=== PATIENT | male | born 1980 | race Caucasian/White ===

== ENCOUNTER 2018-11-10 10:30 | Emergency (ER) | payer OTHER, SELFPAY ==
--- NOTE | 2018-11-10 12:13 | ER ---
Nurse's Notes [facility] Name: Leonardo Ochoa Age: 38 yrs Sex: Male : 1980 Arrival Date: 11/10/2018 Time: 10:35 Bed 13 Private MD: Unknown, Unknown Diagnosis: Acute upper respiratory infection, unspecified Presentation: 11/10 10:47 Presenting complaint: Patient states: "Last night I started having a sharp pain in my aj1 neck and my chest when I breathe" Patient also reports shortness of breath and states he has been "coughing up green stuff for a couple months". Transition of care: patient was not received from another setting of care. Onset of symptoms was November 10, 2018. Risk Assessment: Do you want to hurt yourself or someone else? Patient reports no desire to harm self or others. Initial Sepsis Screen: Does the patient meet any 2 criteria? HR > 90 bpm. No. Patient's initial sepsis screen is negative. Does the patient have a suspected source of infection? Yes: Productive cough/pneumonia. Care prior to arrival: None. 10:47 Method Of Arrival: Ambulatory [facility] 10:47 Acuity: LAURA 3 aj1 Triage Assessment: 10:48 General: Appears in no apparent distress. comfortable, Behavior is calm, cooperative, aj1 appropriate for age. Pain: Complains of pain in chest Pain currently is 7 out of 10 on a pain scale. Neuro: Level of Consciousness is awake, alert, obeys commands, Oriented to person, place, time, situation. Cardiovascular: Patient's skin is warm and dry. Respiratory: Airway is patent Respiratory effort is even, unlabored, Respiratory pattern is regular, symmetrical. Historical: - Allergies: 10:48 No Known Allergies; aj1 - Home Meds: 10:48 None [Active]; aj1 - PMHx: 10:48 None; aj1 - PSHx: 10:48 None; aj1 - Immunization history:: Flu vaccine is not up to date. - Social history:: Smoking status: Patient uses tobacco products, smokes one pack cigarettes per day. - Ebola Screening: : Patient denies travel to an Ebola-affected area in the 21 days before illness onset. Screenin:08 Abuse screen: Denies threats or abuse. Denies injuries from another. Nutritional sg screening: No deficits noted. Tuberculosis screening: No symptoms or risk factors identified. Never had TB. Fall Risk None identified. Assessment: 11:00 General: Appears in no apparent distress. well groomed, well developed, well nourished, sg Behavior is calm, cooperative, appropriate for age. Pain: Complains of pain in body aches and anterior chest wall with cough. Neuro: Level of Consciousness is awake, alert, obeys commands, Oriented to person, place, time, Wire Drawing Setter are equal bilaterally Moves all extremities. Full function Gait is steady, Speech is normal. Cardiovascular: Capillary refill is brisk in bilateral fingers Patient's skin is warm and dry. Chest pain is denied. Respiratory: Airway is patent Respiratory effort is even, unlabored, Respiratory pattern is regular, symmetrical. GI: No signs and/or symptoms were reported involving the gastrointestinal system. : No signs and/or symptoms were reported regarding the genitourinary system. EENT: No signs and/or symptoms were reported regarding the EENT system. Derm: Skin is pink, warm \\T\\ dry. Musculoskeletal: Circulation, motion, and sensation intact. Range of motion: intact in all extremities. Vital Signs: 10:48 BP 127 / 70; Pulse 105; Resp 20; Temp 99.8; Pulse Ox 99% on R/A; Weight 90.72 kg (R); aj1 Height 5 ft. 9 in. (175.26 cm) (R); Pain 7/10; 10:48 Body Mass Index 29.53 (90.72 kg, 175.26 cm) aj1 ED Course: 10:35 Patient arrived in ED. ag5 10:36 Unknown, Unknown is Private Physician. ag5 10:48 Triage completed. aj1 10:48 Arm band placed on Patient placed in an exam room. aj1 10:51 Mic Kim, TEDDY is Primary Nurse. 10:52 Love eFldman FNP is PHCP. nd 10:52 Eusebio Ortiz MD is Attending Physician. nd 11:00 Patient has correct armband on for positive identification. Bed in low position. Call sg light in reach. Pulse ox on. NIBP on. 11:08 No provider procedures requiring assistance completed. Flu and/or RSV swab sent to lab. Patient did not have IV access during this emergency room visit. Patient maintains SpO2 saturation greater than 95% on room air. 11:15 Chest Pa And Lat (2 Views) XRAY In Process Unspecified. EDMS Administered Medications: No medications were administered Outcome: 12:12 Discharge ordered by . dion 12:20 Discharged to home ambulatory, with family. guy 12:20 Condition: good 12:20 Discharge instructions given to patient, family, Instructed on discharge instructions, follow up and referral plans. no drinking with medication, no driving heavy equipment, medication usage, safety practices, Demonstrated understanding of instructions, follow-up care, medications. 12:24 Patient left the ED. Signatures: Dispatcher [employer] EDBhumika Hewitt RN RN aj1 Mic Kim RN RN sg Love Feldman, FILM REPRODUCER FILM REPRODUCER Zahida Conway RN RN Hetal Taylor ag5
--- NOTE | 2018-11-10 12:14 | EDPHYS ---
Physician Documentation [facility] Name: Leonardo Ochoa Age: 38 yrs Sex: Male : 1980 Arrival Date: 11/10/2018 Time: 10:35 Bed 13 Private MD: Unknown, Unknown ED Physician Eusebio Ortiz HPI: 11/10 10:58 This 38 yrs old Male presents to ER via Ambulatory with complaints of Chest nh Pain, Sore Throat, Breathing Difficulty. Historical: - Allergies: 10:48 No Known Allergies; aj1 - Home Meds: 10:48 None [Active]; aj1 - PMHx: 10:48 None; aj1 - PSHx: 10:48 None; aj1 - Immunization history:: Flu vaccine is not up to date. - Social history:: Smoking status: Patient uses tobacco products, smokes one pack cigarettes per day. - Ebola Screening: : Patient denies travel to an Ebola-affected area in the 21 days before illness onset. ROS: 12:08 Eyes: Negative for injury, pain, redness, and discharge, ENT: Negative for injury, nh pain, and discharge, Neck: Negative for injury, pain, and swelling, Cardiovascular: Negative for chest pain, palpitations, and edema, Abdomen/GI: Negative for abdominal pain, nausea, vomiting, diarrhea, and constipation, Back: Negative for injury and pain, : Negative for injury, bleeding, discharge, and swelling, MS/Extremity: Negative for injury and deformity, Skin: Negative for injury, rash, and discoloration, Neuro: Negative for headache, weakness, numbness, tingling, and seizure, Psych: Negative for depression, anxiety, suicide ideation, homicidal ideation, and hallucinations. 12:08 Constitutional: Positive for body aches, fatigue, fever. 12:08 Respiratory: Positive for cough, with no reported sputum, pleurisy, of the right breast. Exam: 12:08 Constitutional: This is a well developed, well nourished patient who is awake, alert, nh and in no acute distress. Head/Face: Normocephalic, atraumatic. Eyes: Pupils equal round and reactive to light, extra-ocular motions intact. Lids and lashes normal. Conjunctiva and sclera are non-icteric and not injected. Cornea within normal limits. Periorbital areas with no swelling, redness, or edema. ENT: Nares patent. No nasal discharge, no septal abnormalities noted. Tympanic membranes are normal and external auditory canals are clear. Oropharynx with no redness, swelling, or masses, exudates, or evidence of obstruction, uvula midline. Mucous membranes moist. Neck: Trachea midline, no thyromegaly or masses palpated, and no cervical lymphadenopathy. Supple, full range of motion without nuchal rigidity, or vertebral point tenderness. No Meningismus. Chest/axilla: Normal chest wall appearance and motion. Nontender with no deformity. No lesions are appreciated. Cardiovascular: Regular rate and rhythm with a normal S1 and S2. No gallops, murmurs, or rubs. Normal PMI, no JVD. No pulse deficits. Respiratory: Lungs have equal breath sounds bilaterally, clear to auscultation and percussion. No rales, rhonchi or wheezes noted. No increased work of breathing, no retractions or nasal flaring. Abdomen/GI: Soft, non-tender, with normal bowel sounds. No distension or tympany. No guarding or rebound. No evidence of tenderness throughout. Back: No spinal tenderness. No costovertebral tenderness. Full range of motion. Skin: Warm, dry with normal turgor. Normal color with no rashes, no lesions, and no evidence of cellulitis. MS/ Extremity: Pulses equal, no cyanosis. Neurovascular intact. Full, normal range of motion. Neuro: Awake and alert, GCS 15, oriented to person, place, time, and situation. Cranial nerves II-XII grossly intact. Motor strength 5/5 in all extremities. Sensory grossly intact. Cerebellar exam normal. Normal gait. Psych: Awake, alert, with orientation to person, place and time. Behavior, mood, and affect are within normal limits. Vital Signs: 10:48 BP 127 / 70; Pulse 105; Resp 20; Temp 99.8; Pulse Ox 99% on R/A; Weight 90.72 kg (R); aj1 Height 5 ft. 9 in. (175.26 cm) (R); Pain 7/10; 10:48 Body Mass Index 29.53 (90.72 kg, 175.26 cm) aj1 MDM: 10:54 Patient medically screened. la 12:08 Data reviewed: vital signs, nurses notes, lab test result(s), radiologic studies, I nh have discussed the patient's presentation/case with the attending Emergency Department Physician; and as a result, I will discharge patient. Counseling: I had a detailed discussion with the patient and/or guardian regarding: the historical points, exam findings, and any diagnostic results supporting the discharge/admit diagnosis, lab results, radiology results, the need for outpatient follow up, to return to the emergency department if symptoms worsen or persist or if there are any questions or concerns that arise at home. 11/10 11:00 Order name: Flu; Complete Time: 11:38 la 11/10 11:00 Order name: Chest Pa And Lat (2 Views) XRAY la Administered Medications: No medications were administered Disposition: 18:48 Co-signature as Attending Physician, Eusebio Ortiz MD. Disposition: 11/10/18 12:12 Discharged to Home. Impression: Acute upper respiratory infection, unspecified. - Condition is Stable. - Discharge Instructions: Upper Respiratory Infection, Adult. - Prescriptions for Zithromax Z- Vance 250 mg Oral Tablet - take 1 tablet by ORAL route as directed for 5 days Day 1 - take two (2) tablets one time. Day 2, 3, 4 , 5 take one (1) tablet once daily.; 6 tablet. Medrol (Vance) 4 mg Oral Tablets, Dose Pack - take 1 tablet by ORAL route as directed - follow package instructions; 1 packet. - Work release form, Medication Reconciliation Form, Thank You Letter, Antibiotic Education, Prescription Opioid Use form. - Follow up: Private Physician; When: 2 - 3 days; Reason: Recheck today's complaints. - Problem is new. - Symptoms are unchanged. Signatures: Dispatcher [employer] CHAPOIN Bhumika Li, RN RN aj1 Love Feldman, CONTINUITY MANAGER CONTINUITY MANAGER la Zahdia Benton, RN RN Eusebio Padron MD MD Corrections: (The following items were deleted from the chart) 12:24 12:12 11/10/2018 12:12 Discharged to Home. Impression: Acute upper respiratory hb infection, unspecified. Condition is Stable. Forms are Medication Reconciliation Form, Thank You Letter, Antibiotic Education, Prescription Opioid Use. Follow up: Private Physician; When: 2 - 3 days; Reason: Recheck today's complaints. Problem is new. Symptoms are unchanged. nh
--- NOTE | 2018-11-10 13:13 | RAD REPORT ---
EXAM DESCRIPTION: Jannet Wiggins And Lat (2 Views)11/10/2018 11:17 am CLINICAL HISTORY: Cough COMPARISON: None FINDINGS: Mild right basilar opacity suspected Left lung appears clear of acute infiltrate. Heart is normal size IMPRESSION: Mild right basilar pneumonia is suspected
== END 2018-11-10 12:24 | disposition home or self-care (01) ==
LOC: ER 10:30
DX: J06.9 Acute upper respiratory infection, unspecified (principal); F17.210 Nicotine dependence, cigarettes, uncomplicated
CPT/HCPCS: 71046; 87804; 99284

== ENCOUNTER 2022-03-01 09:54 | Emergency (ER) | payer SELFPAY ==
[2022-03-01] MEDS ORDERED: NA CHLORIDE 0.9% 1,000 ML ONE (10:35)
[2022-03-01] MEDS ORDERED: DIAZEPAM 10 MG/2 ML INJ SYRINGE ONE (10:35)
[2022-03-01] MEDS ORDERED: HYDROMORPHONE HCL 1 MG/ML INJ ONE (10:35)
--- NOTE | 2022-03-01 11:01 | RAD REPORT ---
EXAM DESCRIPTION: RAD - Ankle Left 3 View - 03/01/2022 10:38 am CLINICAL HISTORY: Pain, fall COMPARISON: No comparisons FINDINGS: The calcaneus is fractured. There is an oblique fracture line traversing through the midpo rtion of the calcaneus. Superior aspect is at the posterior margin of the talocalcaneal joint space. A 10 millimeter sized focal bone density is present suspected to be a free fracture fragment rather t good accessory ossicle. No measurable distraction of the fracture fragments. Distal tibia and fibula a re intact. No significant soft tissue abnormality. No foreign body. IMPRESSION: Left calcaneus fracture as detailed.
--- NOTE | 2022-03-01 12:28 | RAD REPORT ---
EXAM DESCRIPTION: CT - C Spine Wo Con - 03/01/2022 11:58 am CLINICAL HISTORY: Fall, compression load to the spine, neck, back and lumbar pain COMPARISON: None. TECHNIQUE: Axial 2 mm thick images of the cervical spine were obtained with sagittal and coronal rec onstruction images generated and reviewed. All CT scans are performed using dose optimization technique as appropriate and may include automated exposure control or mA/KV adjustment according to patient size. FINDINGS: Cervical body height and alignment are normal. No disk space narrowing. No fracture or acu te bony abnormality. No paraspinal mass or hematoma. Central canal detail is inherently limited. No gross evidence for significant traumatic disc herniati on or disc bulge. IMPRESSION: Negative CT cervical spine examination for fracture or acute vertebral body finding.
--- NOTE | 2022-03-01 12:30 | RAD REPORT ---
EXAM DESCRIPTION: CT - Thoracic Spine W/o Cont - 03/01/2022 11:58 am CLINICAL HISTORY: Fall, axial loading of the spine, neck, back and lumbar pain COMPARISON: None. TECHNIQUE: Axial 2 mm thick images of the thoracic spine were obtained with sagittal and coronal rec onstruction images generated and reviewed. All CT scans are performed using dose optimization technique as appropriate and may include automated exposure control or mA/KV adjustment according to patient size. FINDINGS: Thoracic body height and alignment are normal. No disk space narrowing. No fracture or acu te bony abnormality. No paraspinal mass or hematoma. Central canal detail is inherently limited. No gross evidence for traumatic disc herniation. IMPRESSION: Negative CT thoracic spine examination for acute finding.
--- NOTE | 2022-03-01 12:31 | RAD REPORT ---
EXAM DESCRIPTION: CT - Spine Lumbar Wo Con - 03/01/2022 11:58 am CLINICAL HISTORY: axial load, back pain COMPARISON: None. TECHNIQUE: Thin section axial imaging of the lumbar spine was performed. Sagittal and coronal recon struction images were generated and reviewed. All CT scans are performed using dose optimization technique as appropriate and may include automated exposure control or mA/KV adjustment according to patient size. FINDINGS: Lumbar vertebral bodies are normal in height and alignment. No fracture or acute finding. No facet joint acute process. There is no paraspinal mass or hematoma present. Central canal detail is inherently limited. There is no evidence for lumbar spine traumatic disc dione iation. IMPRESSION: CT lumbar spine examination shows no fracture or acute finding.
--- NOTE | 2022-03-01 12:46 | ER ---
Nurse's Notes [facility] Name: Leonardo Ochoa II Age: 41 yrs Sex: Male : 1980 Arrival Date: 03/01/2022 Time: 09:57 Bed 16 Private MD: Diagnosis: Fracture of calcaneus Presentation: 03/01 10:20 Chief complaint: Patient states: fell off 4th step of ladder but landed on his feet iw causing terrible left ankle/foot pain with swelling. Coronavirus screen: Vaccine status: Patient reports being unvaccinated. Client denies travel out of the [place] in the last 14 days. Ebola Screen: Patient negative for fever greater than or equal to 101.5 degrees Fahrenheit, and additional compatible Ebola Virus Disease symptoms Patient denies exposure to infectious person. Patient denies travel to an Ebola-affected area in the 21 days before illness onset. Initial Sepsis Screen: Does the patient meet any 2 criteria? No. Patient's initial sepsis screen is negative. Does the patient have a suspected source of infection? No. Patient's initial sepsis screen is negative. Risk Assessment: Do you want to hurt yourself or someone else? Patient reports no desire to harm self or others. Onset of symptoms was March 01, 2022. 10:20 Method Of Arrival: Wheelchair iw 10:20 Acuity: LAURA 3 iw Triage Assessment: 10:22 General: Appears uncomfortable, slender, Behavior is calm, cooperative, appropriate for iw age. Pain: Complains of pain in left foot. Musculoskeletal: Circulation, motion, and sensation intact. Range of motion: limited in left ankle Swelling present in left foot. Historical: - Allergies: 10:22 No Known Allergies; iw - PMHx: 10:22 None; iw - Immunization history:: Adult Immunizations up to date. - Social history:: Smoking status: Patient reports the use of cigarette tobacco products, smokes one pack cigarettes per day. Screenin:22 Abuse screen: Denies threats or abuse. Denies injuries from another. Nutritional bp screening: No deficits noted. Tuberculosis screening: No symptoms or risk factors identified. Fall Risk None identified. Assessment: 10:22 General: SEE TRIAGE NOTE. bp 12:00 Reassessment: CONSCIOUS SEDATION DEFERRED BY PROVIDER, NOT NEEDED. bp 13:53 Reassessment: PT PA HOME WITH ASSOCIATE. bp Vital Signs: 10:20 BP 95 / 69; Pulse 82; Resp 20; Temp 98.6; Pulse Ox 98% ; Weight 90.72 kg; Height 5 ft. iw 9 in. (175.26 cm); Pain 10/10; 10:47 BP 109 / 75; Pulse 88; Resp 16; Pulse Ox 92% ; bp 11:49 BP 120 / 78; Pulse 72; Resp 16; Pulse Ox 94% ; bp 12:30 BP 109 / 79; Pulse 59; Resp 16; Pulse Ox 97% ; bp 13:30 BP 108 / 74; Pulse 54; Resp 16; Pulse Ox 98% ; bp 10:20 Body Mass Index 29.53 (90.72 kg, 175.26 cm) iw ED Course: 09:57 Patient arrived in ED. am2 09:58 [facility] D[facility]C [facility] snw 09:58 Duy Linares MD is Attending Physician. snw 10:22 Triage completed. iw 10:22 Arm band placed on right wrist. iw 10:22 Patient has correct armband on for positive identification. Bed in low position. Call bp light in reach. Side rails up X2. 10:29 Jaime Yates, RN is Primary Nurse. bp 10:39 Ankle Left 3 View XRAY: portable In Process Unspecified. EDMS 10:40 Inserted saline lock: 20 gauge in left antecubital area, using aseptic technique. bp 11:49 Orthoglass splint: Posterior short lleg splint applied on left leg. bp 11:59 CT C Spine In Process Unspecified. EDMS 11:59 CT Thoracic Spine Wo Cont In Process Unspecified. EDMS 11:59 CT Lumbar Spine Wo Con In Process Unspecified. EDMS 12:45 Mic Luis MD is Referral Physician. snw 13:54 No provider procedures requiring assistance completed. IV discontinued, intact, bp bleeding controlled, No redness/swelling at site. Pressure dressing applied. Administered Medications: 10:40 Drug: NS 0.9% 1000 ml Route: IV; Rate: 125 ml/hr; Site: left antecubital; bp 13:55 Follow up: IV Status: Completed infusion; IV Intake: 1000ml bp 10:40 Drug: Dilaudid (HYDROmorphone) 1 mg Route: IVP; Site: left antecubital; bp 13:55 Follow up: Response: Pain is decreased bp 10:40 Drug: Valium (diazepam) 5 mg Route: IVP; Site: left antecubital; bp 13:55 Follow up: Response: No adverse reaction bp Intake: 13:55 IV: 1000ml; Total: 1000ml. bp Outcome: 12:46 Discharge ordered by MD. umanzor 13:54 Discharged to home via wheelchair, with friend. bp 13:54 Condition: stable 13:54 Discharge instructions given to patient, Instructed on discharge instructions, follow up and referral plans. medication usage, crutch walking, Demonstrated understanding of instructions, follow-up care, medications, crutch walking, splint care, Prescriptions given X 2. 13:56 Patient left the ED. bp Signatures: Dispatcher [employer] EDMS Naya Díaz, LABEL PASTER-C LABEL PASTER-Tannerw Anabel White, RN RN iw Krisetn Clements am2 Jaime Yates RN RN bp
--- NOTE | 2022-03-01 12:46 | EDPHYS ---
Physician Documentation [facility] Name: Leonardo Ochoa II Age: 41 yrs Sex: Male : 1980 Arrival Date: 03/01/2022 Time: 09:57 Bed 16 Private MD: ED Physician Duy Linares HPI: 03/01 12:05 This 41 yrs old Male presents to ER via Wheelchair with complaints of Ankle Injury. snw 12:05 The patient presents with an injury, pain, that is acute, swelling. The complaints snw affect the left ankle. Onset: The symptoms/episode began/occurred suddenly, just prior to arrival. Context: The problem was sustained outdoors, resulted from a mis-step by the patient, fell from 4th rung of a ladder onto Left foot, The mechanism of injury involved axial compression of the affected ankle. The patient is unable to bear weight. Associated signs and symptoms: The patient has no apparent associated signs or symptoms. Modifying factors: The symptoms are alleviated by nothing, the symptoms are aggravated by weight bearing, movement. Severity of symptoms: At their worst the symptoms were moderate, severe. The patient has not experienced similar symptoms in the past. The patient has not recently seen a physician. Historical: - Allergies: 10:22 No Known Allergies; iw - PMHx: 10:22 None; iw - Immunization history:: Adult Immunizations up to date. - Social history:: Smoking status: Patient reports the use of cigarette tobacco products, smokes one pack cigarettes per day. ROS: 12:04 Constitutional: Negative for fever, chills, and weight loss, Eyes: Negative for injury, snw pain, redness, and discharge, ENT: Negative for injury, pain, and discharge, Neck: Negative for injury, pain, and swelling, Cardiovascular: Negative for chest pain, palpitations, and edema, Respiratory: Negative for shortness of breath, cough, wheezing, and pleuritic chest pain, Abdomen/GI: Negative for abdominal pain, nausea, vomiting, diarrhea, and constipation, Back: Negative for injury and pain, : Negative for injury, bleeding, discharge, and swelling, Skin: Negative for injury, rash, and discoloration, Neuro: Negative for headache, weakness, numbness, tingling, and seizure, Psych: Negative for depression, anxiety, suicide ideation, homicidal ideation, and hallucinations. 12:04 MS/extremity: Positive for injury or acute deformity, decreased range of motion, pain, swelling, of the left foot. Exam: 10:19 Constitutional: This is a well developed, well nourished patient who is awake, alert, snw and in no acute distress. Head/Face: Normocephalic, atraumatic. Eyes: Pupils equal round and reactive to light, extra-ocular motions intact. Lids and lashes normal. Conjunctiva and sclera are non-icteric and not injected. Cornea within normal limits. Periorbital areas with no swelling, redness, or edema. Neck: Trachea midline, no thyromegaly or masses palpated, and no cervical lymphadenopathy. Supple, full range of motion without nuchal rigidity, or vertebral point tenderness. No Meningismus. Chest/axilla: Normal chest wall appearance and motion. Nontender with no deformity. No lesions are appreciated. Vital Signs: 10:20 BP 95 / 69; Pulse 82; Resp 20; Temp 98.6; Pulse Ox 98% ; Weight 90.72 kg; Height 5 ft. iw 9 in. (175.26 cm); Pain 10/10; 10:47 BP 109 / 75; Pulse 88; Resp 16; Pulse Ox 92% ; bp 11:49 BP 120 / 78; Pulse 72; Resp 16; Pulse Ox 94% ; bp 12:30 BP 109 / 79; Pulse 59; Resp 16; Pulse Ox 97% ; bp 13:30 BP 108 / 74; Pulse 54; Resp 16; Pulse Ox 98% ; bp 10:20 Body Mass Index 29.53 (90.72 kg, 175.26 cm) iw MDM: 10:11 Patient medically screened. snw 12:07 Data reviewed: vital signs, nurses notes. Data interpreted: Pulse oximetry: on room air snw is 94 %. Interpretation: acceptable. Counseling: I had a detailed discussion with the patient and/or guardian regarding: the historical points, exam findings, and any diagnostic results supporting the discharge/admit diagnosis, the presence of at least one elevated blood pressure reading (>120/80) during this emergency department visit, radiology results, the need for outpatient follow up, to return to the emergency department if symptoms worsen or persist or if there are any questions or concerns that arise at home. Response to treatment: the patient's symptoms have markedly improved after treatment. Special discussion: Based on the history and exam findings, there is no indication for further emergent testing or inpatient evaluation. I discussed with the patient/guardian the need to see the orthopedic surgeon for further evaluation of the symptoms. 03/01 10:19 Order name: Ankle Left 3 View XRAY: portable; Complete Time: 11:09 snw 03/01 11:38 Order name: CT C Spine; Complete Time: 12:29 snw 03/01 11:38 Order name: CT Thoracic Spine Wo Cont; Complete Time: 12:36 snw 03/01 11:38 Order name: CT Lumbar Spine Wo Con; Complete Time: 12:36 snw 03/01 10:19 Order name: Posterior Orthoglass Ankle Splint; Complete Time: 11:47 snw Administered Medications: 10:40 Drug: NS 0.9% 1000 ml Route: IV; Rate: 125 ml/hr; Site: left antecubital; bp 13:55 Follow up: IV Status: Completed infusion; IV Intake: 1000ml bp 10:40 Drug: Dilaudid (HYDROmorphone) 1 mg Route: IVP; Site: left antecubital; bp 13:55 Follow up: Response: Pain is decreased bp 10:40 Drug: Valium (diazepam) 5 mg Route: IVP; Site: left antecubital; bp 13:55 Follow up: Response: No adverse reaction bp Disposition: 17:31 Co-signature as Attending Physician, Duy Linares MD. rn Disposition Summary: 03/01/22 12:46 Discharge Ordered Location: Home snw Condition: Stable snw Diagnosis - Fracture of calcaneus snw Followup: snw - With: Emergency Department - When: As needed - Reason: Worsening of condition Followup: snw - With: Mic Luis MD - When: 1 - 2 days - Reason: Recheck today's complaints, Continuance of care Discharge Instructions: - Discharge Summary Sheet snw - Elastic Bandage and RICE Therapy snw - Calcaneal Fracture Repair Surgery snw - Cast or Splint Care, Adult snw - Crutch Use, Adult snw Forms: - Medication Reconciliation Form snw - Thank You Letter snw - Antibiotic Education snw - Prescription Opioid Use snw Prescriptions: - acetaminophen-codeine 300-15 mg Oral tablet - take 2 tablet by ORAL route every 4-6 hours; 20 tablet; Refills: 0, Product snw Selection Permitted - Mobic 7.5 mg Oral Tablet - take 1 tablet by ORAL route once daily take with food; 20 tablet; Refills: 0, snw Product Selection Permitted Signatures: Dispatcher [employer] EDNaya Zuniga, DELMY-C CHIEF GAUGER-[employer] Anabel White, Duy Ravi RN, MD MD rn Peltier, Brian, RN RN bp Corrections: (The following items were deleted from the chart) 11:47 10:19 Cardiac monitoring ordered. snw bp 11:48 10:19 Conscious Sedation ordered. snw bp
[2022-03-01 14:15] VITALS: TEMP 98.6
[2022-03-01 14:33] VITALS: BP 108/74; O2SAT 98
== END 2022-03-01 13:56 | disposition home or self-care (01) ==
LOC: ER 09:54
DX: S92.002A Unspecified fracture of left calcaneus, initial encounter for closed fracture (principal); F17.210 Nicotine dependence, cigarettes, uncomplicated
CPT/HCPCS: 72125; 72128; 72131; 96361; 96374; 96375; 99284; J1170; J3360; J7030